=== PATIENT | male | born 1950 | race Caucasian/White ===

== ENCOUNTER 2019-11-14 09:05 | Emergency (ER) | payer MEDICARE, OTHER ==
[~2019-11-14] VITALS: Ht 182.9 cm; Wt 105.5 kg
[~2019-11-14 09:05] MED LIST: AMLODIPINE5 MG PO; ASPIRIN E.C. 8181 MG PO; CENTRUM SILVER1 TA1 PO; FORTAMET PO; GLUCOTROL5 MG PO; LIPITOR40 MG PO; LISINOPRIL/HCTZ1 TA2 PO; LISINOPRIL20 MG PO; METFORMIN1000 MG PO; METOPROLOL25 MG PO; VITAMIN D NATU400 IU PO
[2019-11-14 09:19] VITALS: BP 183/90; PULSE 67; TEMP 97.8
[2019-11-14 10:20] LABS: BASO % 0.4 % (0.0-2.0); EOS # 0.2 (0.0-0.7); EOS % 2.1 % (0-4.0); GRAN # 7.3 (1.4-6.5); GRAN % 76.8 % (42.2-75.2); HEMATOCRIT 44.1 % (42.0-52.0); HEMOGLOBIN 15.2 g/dl (13.5-18.0); LYMPH # 1.2 (1.2-3.4); LYMPH % 12.4 % (20.0-51.0); MEAN CELL VOLUME 81 fl (80.0-100.0); MEAN CORPUSCULAR HEMOGLOBIN 28 pg (27.0-31.0); MEAN CORPUSCULAR HGB CONC 35 g/dl (33.0-37.0); MEAN PLATELET VOLUME 10.1 fl (7.4-10.4); MONO # 0.7 (0.1-0.6); MONO % 7.6 % (1.7-9.3); PLATELET COUNT 221 K/mm3 (130-400); RED BLOOD COUNT 5.42 M/mm3 (4.20-5.60); REDCELL DISTRIBUTION WIDTH-CV 12.3 % (11.5-14.5)
[2019-11-14 10:36] LABS: ALANINE AMINOTRANSFERASE 46 U/L (21-72); ALBUMIN 4.3 gm/dL (3.5-5.0); ALKALINE PHOSPHATASE 72 U/L (50-136); ANION GAP 6 mmol/L (7-16); AST,SGOT 23 U/L (15-37); BILIRUBIN,TOTAL 1.1 mg/dL (0.0-1.0); BLOOD UREA NITROGEN 25 mg/dL (9-20); CALCIUM 9.2 mg/dL (8.4-10.2); CARBON DIOXIDE 31 mmol/L (22-30); CHLORIDE 100 mmol/L (98-107); CREATININE, serum 0.92 (0.66-1.25); GLUCOSE 160 mg/dL (74-106); LIPASE 126 U/L (23-300); POTASSIUM 3.8 mmol/L (3.4-5.0); SODIUM 137 mmol/L (137-145); TOTAL PROTEIN 6.8 gm/dL (6.4-8.2)
[2019-11-14 10:45] LABS: C-REACTIVE PROTEIN < 0.5 mg/dL (0.0-0.9); TROPONIN-I < 0.012 ng/mL (0.000-0.035)
[2019-11-14 11:02] LABS: COLLECTION METHOD CLEAN CATCH
[2019-11-14 11:08] LABS: PH 5 (5-8); SQUAMOUS EPITHELIAL 0-2 /hpf; URINE APPEARANCE Clear; URINE BACTERIA None Seen /hpf; URINE BILIRUBIN Negative (NEGATIVE); URINE BLOOD 2+ (NEGATIVE); URINE COLOR Yellow; URINE GLUCOSE Negative (NEGATIVE); URINE KETONE Negative (NEGATIVE); URINE LEUKOCYTE ESTERASE Negative (NEGATIVE); URINE NITRATE Negative (NEGATIVE); URINE PROTEIN(semi-quant) Negative (NEGATIVE); URINE RBC 0-2 /hpf; URINE UROBILINOGEN Negative (NEGATIVE)
[2019-11-14] MEDS ORDERED: NORCO 325 MG-51 TAB PO (11:50)
== END 2019-11-14 12:00 | disposition home or self-care (01) ==
LOC: COL.ER 09:05
PROVIDERS: Family Medicine
DX: N20.1 Calculus of ureter (principal); I10 Essential (primary) hypertension; Z79.82 Long term (current) use of aspirin

== ENCOUNTER 2020-05-20 07:15 | Emergency (ER) | payer MEDICARE, OTHER ==
[~2020-05-20] VITALS: Ht 188 cm; Wt 107.7 kg
[~2020-05-20 07:15] MED LIST changes: +NORCO 325 MG-51 TAB PO
[2020-05-20 07:20] VITALS: TEMP 98.1
[2020-05-20] MEDS ORDERED: CEPHALEXIN500 M1 PO (08:09)
[2020-05-20 08:10] VITALS: BP 175/89; PULSE 60
== END 2020-05-20 08:12 | disposition home or self-care (01) ==
LOC: COL.ER 07:15
DX: S61.432A Puncture wound without foreign body of left hand, initial encounter (principal); E11.9 Type 2 diabetes mellitus without complications; I10 Essential (primary) hypertension; E78.5 Hyperlipidemia, unspecified; Z79.899 Other long term (current) drug therapy; Z79.82 Long term (current) use of aspirin; Z79.84 Long term (current) use of oral hypoglycemic drugs; Z87.891 Personal history of nicotine dependence; W01.0XXA Fall on same level from slipping, tripping and stumbling without subsequent striking against object, initial encounter; Y92.009 Unspecified place in unspecified non-institutional (private) residence as the place of occurrence of the external cause

== ENCOUNTER 2023-01-14 15:36 | Emergency (ER) | payer MEDICARE, OTHER ==
[~2023-01-14] VITALS: Ht 188 cm; Wt 103.6 kg
[~2023-01-14 15:36] MED LIST changes: +CEPHALEXIN500 M1 PO
[2023-01-14 15:50] VITALS: TEMP 99
[2023-01-14 18:55] LABS: BASO % 0.3 % (0.0-2.0); EOS # 0.1 K/mm3 (0.0-0.7); EOS % 0.8 % (0.0-4.0); GRAN # 9.6 K/mm3 (1.4-6.5); GRAN % 80.5 % (42.2-75.2); HEMATOCRIT 42.1 % (42.0-52.0); LYMPH # 1.3 K/mm3 (1.2-3.4); LYMPH % 10.8 % (20.0-51.0); MEAN CELL VOLUME 82 fl (80.0-100.0); MEAN CORPUSCULAR HEMOGLOBIN 27 pg (27-31); MEAN CORPUSCULAR HGB CONC 33 g/dl (33.0-37.0); MEAN PLATELET VOLUME 10.2 fl (7.4-10.4); MONO # 0.9 K/mm3 (0.1-0.6); MONO % 7.2 % (1.7-9.3); PLATELET COUNT 238 K/mm3 (130-400); RED BLOOD COUNT 5.11 M/mm3 (4.20-5.60); REDCELL DISTRIBUTION WIDTH-CV 12.5 % (11.5-14.5)
[2023-01-14 19:00] LABS: COLLECTION METHOD CLEAN CATCH
[2023-01-14 19:11] LABS: MUCOUS Present (NOT PRESENT); SQUAMOUS EPITHELIAL 0-2 /hpf (0-10); URINE BACTERIA None Seen /hpf (NONE SEEN)
[2023-01-14 19:15] LABS: URINE APPEARANCE Cloudy (CLEAR/HAZY); URINE COLOR Yellow (YELLOW); URINE GLUCOSE 2+ (NEGATIVE); URINE PROTEIN(semi-quant) TRACE (NEGATIVE)
[2023-01-14 19:16] LABS: URINE BLOOD 2+ (NEGATIVE); URINE KETONE Negative (NEGATIVE); URINE NITRATE Negative (NEGATIVE); URINE UROBILINOGEN 0.2 (NEGATIVE)
[2023-01-14 19:17] LABS: ALBUMIN 3.6 gm/dL (3.4-4.8); CREATININE, serum 0.88 mg/dL (0.72-1.25); POTASSIUM 3.5 mmol/L (3.5-4.5); TOTAL PROTEIN 6.9 gm/dL (6.2-8.1)
[2023-01-14] MEDS ORDERED: CIPRO 500MG TA500 MG PO (19:32)
[2023-01-14 19:55] VITALS: BP 128/61; PULSE 80
== END 2023-01-14 20:00 | disposition home or self-care (01) ==
LOC: COL.ER 15:36
PROVIDERS: Physician Assistant
DX: N30.00 Acute cystitis without hematuria (principal); E11.9 Type 2 diabetes mellitus without complications
CPT/HCPCS: J0696